=== PATIENT | male | born 1945 | race Caucasian/White ===

== ENCOUNTER 2021-10-09 13:58 | Outpatient (CLI) | payer MEDICARE, SELFPAY ==
[2021-10-09 14:33] LABS: Absolute Lymphocyte Count 1.32 X10^3/uL (0.83-4.51); Absolute Neutrophil Count 5.4 X10^3/uL (2.0-7.7); Basophil# 0.09 X10^3/uL; Basophil% 1.2 % (0-1); Eosinophil# 0.19 X10^3/uL; Eosinophils% 2.4 % (0-5); Hematocrit 40.4 % (40-54); Hemoglobin 13.3 g/dL (13.0-16.5); Lymphocyte # 1.32 X10^3/ul (0.83-4.51); Mean Corp Hgb Conc 32.9 g/dL (32-36); Mean Corpuscular Hgb 29.8 pg (27.0-32.0); Mean Corpuscular Volume 90.6 fL (80-94); Mean Platelet Vol. 10.2 fl (6.2-12.0); Monocyte# 0.76 X10^3/uL; Monocyte% 9.8 % (0-10); NRBC Flagged by Analyzer 0 % (0-5); Neutrophil # 5.38 X10^3/uL (2.7-7.7); Neutrophil % 69.1 % (47-70); Platelet Count 223 K/mm3 (150-450); RBC Distribution Width CV 12.7 % (11.6-14.6); Red Blood Count 4.46 M/mm3 (4.6-6.2); White Blood Count 7.8 K/mm3 (4.4-11.0)
--- NOTE | 2021-10-09 15:02 | RAD_ITS ---
EXAM: XR CHEST, 2 VIEWS CLINICAL INDICATION: Chronic Cough Chronic Cough TECHNIQUE: Frontal and lateral views of the chest. This report was created using [employer] report generation technology. COMPARISON: None. FINDINGS: LUNGS AND PLEURAL SPACES: Unremarkable. No consolidation or edema. No pneumothorax. No effusion. HEART: Unremarkable. Cardiac silhouette not enlarged. MEDIASTINUM: Central airways and mediastinal contour are unremarkable. BONES/JOINTS: There are no visualized acute osseous abnormalities. SOFT TISSUES: Unremarkable. RAD/Chest PA and Lateral IMPRESSION: No acute findings in the chest. Electronically Signed: Carlos Hernandez MD at 2:05 EST Reading Location ID and State: [facility] / [place] , Service support ,
[2021-10-15 01:06] LABS: Alternaria tenuis <0.10 kU/L (Class 0); Ash, White <0.10 kU/L (Class 0); Aspergillus fumigatus <0.10 kU/L (Class 0); Bermuda Grass <0.10 kU/L (Class 0); Birch <0.10 kU/L (Class 0); Black Walnut <0.10 kU/L (Class 0); Cat Hair / Dander,Stand <0.10 kU/L (Class 0); Cedar, Mountain <0.10 kU/L (Class 0); Cladosporium herbarum <0.10 kU/L (Class 0); Cockroach, American 0.36 kU/L (Class I); Cottonwood <0.10 kU/L (Class 0); D farinae Mite <0.10 kU/L (Class 0); D pteronyssinus <0.10 kU/L (Class 0); Dog Epithelia <0.10 kU/L (Class 0); Elm, American White <0.10 kU/L (Class 0); Immunoglobulin E 66 IU/mL (6-495); Maple/Box Elder <0.10 kU/L (Class 0); Mulberry, White <0.10 kU/L (Class 0); Oak, White <0.10 kU/L (Class 0); Pecan <0.10 kU/L (Class 0); Penicillium Notatum <0.10 kU/L (Class 0); Pigweed, Rough <0.10 kU/L (Class 0); Ragweed, Short/Common <0.10 kU/L (Class 0); Russian Thistle <0.10 kU/L (Class 0); Sheep Sorrel <0.10 kU/L (Class 0); Sycamore, American <0.10 kU/L (Class 0); Timothy Grass <0.10 kU/L (Class 0)
[2021-10-15 13:25] LABS: Mouse Urine <0.10 kU/L (Class 0)
== END 2021-10-09 23:59 | disposition home or self-care (01) ==
PROVIDERS: PCP Family Medicine; Referring Provider Internal Medicine Critical Care Medicine; Visit Provider Internal Medicine Critical Care Medicine
DX: R05.3 Chronic cough (principal)
CPT/HCPCS: 36415; 71046; 82785; 85025; 86003

== ENCOUNTER 2021-10-30 10:38 | Outpatient (CLI) | payer MEDICARE, SELFPAY ==
--- NOTE | 2021-10-30 13:38 | PFT ---
INTRODUCTION: The patient is a 76-year-old male that presents for pulmonary function studies secondary to a diagnosis of chronic cough. Respiratory therapy reported good patient effort. Bronchodilators were used during testing. INTERPRETATION: Forced expiration spirometry demonstrates no evidence of a large airways obstructive ventilatory defect. There was no significant response to aerosolized bronchodilators. Spirograms are of good quality and plateau gradually indicating slow emptying of the lungs. Body plethysmography was performed and revealed a decreased TLC to 5.49 L, 85% of predicted, indicative of a mild restrictive ventilatory impairment. Diffusing capacity by single breath CO was within normal limits. IMPRESSION: Isolated mild restrictive ventilatory impairment with preserved diffusing capacity.
== END 2021-10-30 23:59 | disposition home or self-care (01) ==
LOC: PSN 10:39
PROVIDERS: PCP Family Medicine; Referring Provider Internal Medicine Critical Care Medicine; Visit Provider Internal Medicine Critical Care Medicine
DX: R05.3 Chronic cough (principal)
CPT/HCPCS: 94060; 94726; 94729

== ENCOUNTER → 2022-01-08 | Outpatient (CLI) | payer MEDICARE, SELFPAY ==
--- NOTE | 2022-01-08 13:52 | ECHOCS_ITS ---
Reason For Study: MURMUR Procedure This was a 2D Doppler, Color Flow transthoracic echocardiogram. Exam performed in department. Left Ventricle Normal LV size. The estimated ejection fraction is 10 %. There is severe global hypokinesis of the left ventricle. Right Ventricle Normal RV size. Normal systolic function. Atria The left atrium is moderately enlarged. The right atrium is moderately enlarged. Mitral Valve Bileaflet diffuse mitral valve thickening. Equivocal mitral valve prolapse. Moderate (2+) eccentric mitral valve insufficiency. Tricuspid Valve Normal tricuspid valve. Moderate (2+) tricuspid valve insufficiency. Pulmonary artery systolic pressure is 60 mmHg. Moderate pulmonary hypertension. Aortic Valve Trisinus/trileaflet aortic valve. Severe focal aortic valve calcification. Peak aortic valve gradient 10 mmHg. Mean aortic valve gradient 5 mmHg. Moderate aortic stenosis. Pulmonic Valve Normal pulmonic valve. Great Vessels Normal aortic root. The pulmonary artery is normal size. Normal inferior vena cava. Pericardium/Pleural No pericardial effusion. MMode/2D Measurements & Calculations LVIDd: 5.4 cm IVSd: 1.0 cm LVOT diam: 2.0 cm LVIDs: 4.3 cm LVPWd: 1.3 cm LVOT area: 3.1 cm2 RVDd: 3.0 cm FS: 20.0 % LAV(MOD-bp): 110.6 ml LVAd ap4: 42.1 cm2 LVAd ap2: 42.8 cm2 LAV(MOD-bp) Indexed: 60.7 ml/m2 LVLd ap4: 8.4 cm LVLd ap2: 8.8 cm LAV(MOD-sp2): 95.3 ml EDV(MOD-sp4): 176.0 ml EDV(MOD-sp2): 174.0 ml LAV(MOD-sp4): 108.7 ml EDV(sp4-el): 179.7 ml EDV(sp2-el): 175.6 ml LVAs ap4: 34.2 cm2 LVAs ap2: 35.2 cm2 LVLs ap4: 7.4 cm LVLs ap2: 8.0 cm ESV(MOD-sp4): 131.4 ml ESV(MOD-sp2): 125.9 ml ESV(sp4-el): 134.0 ml ESV(sp2-el): 130.5 ml EF(MOD-sp4): 25.3 % EF(MOD-sp2): 27.6 % EF(sp4-el): 25.5 % SV(MOD-sp4): 44.6 ml SV(MOD-sp2): 48.1 ml SV(sp4-el): 45.8 ml LA dimension(2D): 5.7 cm LA A4 area: 31.6 cm2 RA A4 area: 31.5 cm2 Doppler Measurements & Calculations MV E max jeff: 103.0 cm/sec Lat Peak E' Jeff: 7.9 cm/sec Med Peak E' Jeff: 2.8 cm/sec E/E' lat: 13.1 E/E' med: 36.3 MV V2 max: 146.1 cm/sec MV P1/2t max jeff: 143.4 cm/sec Ao V2 max: 162.9 cm/sec MV max P.6 mmHg MV P1/2t: 69.1 msec Ao max P.6 mmHg MV V2 mean: 70.5 cm/sec MV dec slope: 607.9 cm/sec2 Ao V2 mean: 103.4 cm/sec MV mean P.7 mmHg Ao mean P.0 mmHg MV V2 VTI: 22.1 cm MVA(P1/2t): 3.2 cm2 Ao V2 VTI: 33.8 cm MVA(VTI): 2.3 cm2 KRISH(I,D): 1.5 cm2 KRISH(V,D): 1.8 cm2 LV V1 max: 94.0 cm/sec MR max jeff: 597.9 cm/sec SV(LVOT): 49.7 ml LV V1 max P.7 mmHg MR max P.0 mmHg LV V1 mean P.8 mmHg MR mean jeff: 435.7 cm/sec LV V1 mean: 58.2 cm/sec MR mean P.2 mmHg LV V1 VTI: 16.1 cm MR VTI: 187.4 cm PA V2 max: 138.1 cm/sec TR max jeff: 368.2 cm/sec TR max P.2 mmHg ECHO/Echo Complete W/ Contrast Interpretation Summary Normal LV size. The estimated ejection fraction is 10 %. There is severe global hypokinesis of the left ventricle. The left atrium is moderately enlarged. The right atrium is moderately enlarged. Moderate (2+) eccentric mitral valve insufficiency. Pulmonary artery systolic pressure is 60 mmHg. Moderate pulmonary hypertension. Severe focal aortic valve calcification. Moderate aortic stenosis. Low flow low gradient aortic stenosis noted Ordering Physician: Charissa Harvey Referring Physician: Mitch Tong M.D. Performed By: Lynne Nunez RCS
== END | disposition home or self-care (01) ==
PROVIDERS: PCP Family Medicine; Visit Provider Nurse Practitioner Acute Care
DX: R01.1 Cardiac murmur, unspecified (principal)
CPT/HCPCS: 93306; C8929

== ENCOUNTER → 2022-01-10 | Outpatient (CLI) | payer MEDICARE, SELFPAY ==
[2022-01-10 17:34] LABS: Absolute Lymphocyte Count 1.26 X10^3/uL (0.83-4.51); Absolute Neutrophil Count 4.3 X10^3/uL (2.0-7.7); Basophil# 0.06 X10^3/uL; Eosinophil# 0.11 X10^3/uL; Eosinophils% 1.8 % (0-5); Hematocrit 39.1 % (40-54); Hemoglobin 13.1 g/dL (13.0-16.5); Lymphocyte # 1.26 X10^3/ul (0.83-4.51); Lymphocyte % 20.2 % (19-41); Mean Corp Hgb Conc 33.5 g/dL (32-36); Mean Corpuscular Hgb 30.5 pg (27.0-32.0); Mean Corpuscular Volume 90.9 fL (80-94); Mean Platelet Vol. 10.1 fl (6.2-12.0); Monocyte# 0.55 X10^3/uL; Monocyte% 8.8 % (0-10); NRBC Flagged by Analyzer 0 % (0-5); Neutrophil # 4.26 X10^3/uL (2.7-7.7); Platelet Count 167 K/mm3 (150-450); RBC Distribution Width CV 13.6 % (11.6-14.6); RBC Distribution Width SD 46.1 fl (35.1-43.9); White Blood Count 6.3 K/mm3 (4.4-11.0)
[2022-01-10 18:59] LABS: Anion Gap 8 (5-15); BUN 22 mg/dL (7-18); BUN/Creat Ratio 19.8 RATIO (10-20); Calcium,Total 8.7 mg/dL (8.5-10.1); Chloride 102 mmol/L (98-107); Creatinine, Serum 1.11 mg/dL (0.70-1.30); EST Glomerular Filtration Rate 69 mL/min (>60); Est Glom Filt Rate - Afr Amer 83 mL/min (>60); Glucose 94 mg/dL (74-106); Potassium 4.3 mmol/L (3.5-5.1); Sodium Level 134 mmol/L (136-145); Thyroid Stim Hormone (TSH) 2.44 uIU/mL (0.358-3.74)
== END | disposition home or self-care (01) ==
LOC: LABSPEC 01-11 09:20 → LAB 01-16 06:03
PROVIDERS: PCP Family Medicine; Referring Provider Internal Medicine Cardiovascular Disease; Visit Provider Internal Medicine Cardiovascular Disease
DX: R00.2 Palpitations (principal); I42.9 Cardiomyopathy, unspecified; R01.1 Cardiac murmur, unspecified
CPT/HCPCS: 36415; 80048; 84443; 85025

== ENCOUNTER 2022-01-16 10:23 | Day surgery (SDC) | payer MEDICARE, SELFPAY ==
[2022-01-15 07:53] VITALS: BMI 21.9
--- NOTE | 2022-01-16 12:59 | CASEMGMT ---
According to the [facility], the following are in-network tertiary faciities: [facility], [facility], [facility], [facility], [facility], [facility], [facility], [facility], and . Jean NELSON CM
--- NOTE | 2022-01-16 13:32 | CL.D_ITS ---
Patient Name: PEGGY PAGAN Study Date: 01/16/2022 Performing: Jamin Ceballos MD Ht: 68.89 inches 175 cm : 1945 Wt: 149.91 lbs 68 kg Age: 76 Gender: male BSA: 1.83 PROCEDURE(S) PERFORMED DC01-([id number])LHC/COR/LV CLINICAL PROFILE AND INDICATIONS Indications: Suspected CAD Heart Failure: NYHA Class: 2, Newly Diagnosed: Yes Stress/Imaging Stress/Image Study Performed: No CAD Presentations: No Sxs, no angina. 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 The risks and benefits of the procedure as well as a full d escription of our services here and current unavailability of surgical backup were fully explained to the patient and/or their significant other prior to the catheterization. The Timeout was completed, verifying the correct patient and procedure. The patient's procedural site was prepped and draped in the usual fashion. Local anesthetic was given subcutaneously to right radial region with Lidocaine 2% . Using a modified Seldinger technique, arterial access was obtained via the right radial artery, a 6 Fr sheath was inserted. Left Coronary Artery selective angiography was performed in multiple views u sing a 5 Fr. 4.0 [place] catheter. Right Coronary Artery selective angiography was then performed in mu ltiple views using a 5 Fr. 4.0 [place] catheter. Left Ventriculography was performed in ALY projection using a 5 Fr. [place] catheter. LV to AO pullback pressures were then recorded.The arterial sheath was pulled and a TR Band was applied for hemostasis w/ 13ml air CORONARY ANGIOGRAPHY DOMINANCE: Right Dominant LEFT HEART ASSESSMENT Left Ventricular Ejection Fraction: by LV Gram 15 % Global Hypokinesis - Severe Depressed Left Ventricular systolic function Aortic Valve Mean Gradient: 4.8 LEFT MAIN: Moderate calcification, 30 % Stenosis LEFT ANTERIOR DESCENDING ARTERY: Calcified vessel with 70% proximal to mid stenosis and diffuse disea se. CIRCUMFLEX ARTERY: Medium size vessel with 3 obtuse marginal branches with a third 1 having a long 80 % stenosis RIGHT CORONARY ARTERY: Large dominant vessel with eccentric mid 80% stenosis VALVE FINDINGS: Aortic Valve Calcification - mild Mitral Valve Calcification Moderate Mitral Valve Insufficiency - Grade 2 AORTIC ROOT: Calcified COMPLICATIONS No Complications PROCEDURE MEDICATIONS Versed 1 mg IV Fentanyl 50 mcg IV Versed 1 mg IV Oxygen: 2 L/min via nasal cannula Heparin given IA 01/16/2022 12:38:19 SUMMARY OF HEMODYNAMIC DATA Time AIR REST ECG 10:53:22 Art 177/81 (115) 12:32:52 AO 148/82 (109) SA 12:41:32 LV 134/9, 15 12:48:29 LV 132/8, 14 12:48:44 LV 134/9, 14 12:49:51 LV 135/10, 15 12:49:58 LVp 133/8, 16 12:50:04 AOp 136/77 (103) 12:50:09 LV 119/7, 9 12:51:33 LV 121/8, 14 12:51:42 LVp 127/10, 19 12:52:22 AOp 137/82 (107) 12:52:27 Valve Area (c P-P/ms Time AIR REST Aortic 0.00 4.8 mn/136 ms 12:50:04 Aortic 0.00 0.5 mn/42 ms 12:52:22 Signed By Jamin Ceballos MD On 01/16/2022 13:31:09 Jamin Ceballos MD
== END 2022-01-16 14:47 | disposition home or self-care (01) ==
PROVIDERS: PCP Family Medicine; Visit Provider Internal Medicine Cardiovascular Disease
DX: I42.9 Cardiomyopathy, unspecified (principal); I27.21 Secondary pulmonary arterial hypertension; I50.20 Unspecified systolic (congestive) heart failure; I11.0 Hypertensive heart disease with heart failure; I08.0 Rheumatic disorders of both mitral and aortic valves; I70.90 Unspecified atherosclerosis; R06.02 Shortness of breath; R01.1 Cardiac murmur, unspecified; R00.2 Palpitations
CPT/HCPCS: 93458; 99152; 99153; J7030; Q9967; C1769; C1894